=== PATIENT | female | born 1945 | race Caucasian/White ===

== ENCOUNTER 2016-06-29 10:56 | Inpatient (IN) | payer OTHER ==
[~2016-06-29] VITALS: Ht 152.4 cm; Wt 69.6 kg
--- NOTE | ~2016-06-29 | P ---
[facility] [place] [address] PROCEDURE REPORT Name: ALVIN BLEVINS Room #: 450-P ADM IN M.R.#: [id number] Admission: 06/29/16 Attend Phys: Madhuri Flaherty MD Discharge: Date of : 45 Report #: [id number] THIS REPORT FOR: //name// CC: Nimo Flaherty BRIEF HISTORY: The patient is a 71-year-old woman who has had melanotic stools. She has also had diarrhea, but was found to be positive for Clostridium difficile. PREOPERATIVE DIAGNOSIS: Melanotic stool. POSTOPERATIVE DIAGNOSES: 1. Moderate hiatus hernia with few scattered erosions. 2. Gastritis without active bleeding, but slight friability. MEDICATIONS: Deep sedation with propofol per anesthesia. SPECIMEN: Biopsies, gastric mucosa, rule out H. pylori. ESTIMATED BLOOD LOSS: 3 mL. PROCEDURE: EGD with biopsy. FINDINGS: Prior to propofol sedation, procedure of upper endoscopy discussed with the patient as well as potential risks, benefits, and complications. She indicates she understands and desires to proceed. With the patient in left lateral decubitus position, the [employer] video endoscope was inserted in the cervical esophagus under direct vision without difficulty. Examination of this organ through its entire length revealed normal esophageal mucosa down the squamocolumnar junction. Squamocolumnar junction was inspected and noted to be unremarkable, no evidence of ulcers, erosions or rectal bleeding. Scope was advanced, bambi was about 3 cm sliding type hiatus hernia. The mucosa in the hernia was intact; however, there was some slight friability and some minor scope trauma with passing the scope through this area; however, significant or active bleeding is not seen. A few erosions were seen on the distal aspect of the diaphragmatic hiatus, but again an ulcer was not seen. The scope was advanced fully into the stomach, was examined on end view as well as retroflexed views. There was a pattern of a diffuse gastritis with erythema, but no ulcers or erosions were seen. Upon retroflexion, the hiatus hernia was seen, but no mass lesions were seen. No bleeding lesions were seen. There were no clots in the stomach. The pylorus, duodenal bulb, and postbulbar sweep down to the fourth portion revealed normal mucosa. At that point, the scope was slowly withdrawn and careful circumferential views confirmed the above findings. The patient tolerated the procedure well. Biopsies obtained of the gastritis. [address] [address] PROCEDURE REPORT Name: ALVIN BLEVINS Room #: 450-P [facility] IN [facility]#: [id number] Admission: 06/29/16 Attend Phys: Madhuri Flaherty MD Discharge: Date of : 45 Report #: [id number] DISPOSITION: The patient with GI bleeding. No obvious upper GI source. She does have positive stools for C. diff and currently on metronidazole. She has significant pulmonary disease. We will see how she does. We would consider colonoscopy. It is possible the bleeding may be related simply to the C. diff, I do not think a neoplastic lesion needs to be considered and excluded. until the C. diff that has resolved. However, bleeding continued to be an issue, urgent colonoscopy could be undertaken. <ELECTRONICALLY SIGNED> By: Jarod Roth MD 07/09/16 1104 1256 2236 Jarod Roth MD /nt
--- NOTE | ~2016-06-29 | EKG ---
[address] [address] ELECTROCARDIOGRAM REPORT Name: ALVIN BLEVINS Room #: 303-P ADM IN M.R.#: [id number] Admission: 06/29/16 Attend Phys: Madhuri Flaherty MD Discharge: Date of : 45 Report #: [id number] THIS REPORT FOR: //name// [facility] ED Test Date: 2016-06-29 Test Time: 11:01:29 Pat Name: ALVIN BLEVINS Department: Room: [facility] Gender: F Rip Tailer: CECI : 1945 Requested By: Cameron Flores Order Number: [id number] MD: Baron Rowell Measurements Intervals [place] Rate: 101 P: 45 HI: 143 QRS: 44 QRSD: 87 T: 98 QT: 363 QTc: 471 Interpretive Statements Sinus tachycardia Ventricular premature complex Aberrant complex Left atrial enlargement LVH with secondary repolarization abnormality No previous ECG available for comparison Electronically Signed On 06-30-2016 11:09:07 ELEMENTARY READING TUTOR by Baron Rowell [email or web address] <ELECTRONICALLY SIGNED> By: Baron Rowell MD 06/30/16 1109 110 00 Baron Rowell MD /SHARAN
--- NOTE | ~2016-06-29 | 2DMMODE ---
[facility] [place] [place] [address] 2 D/M-MODE ECHOCARDIOGRAM Name: ALVIN BLEVINS Room #: 247-P [facility] IN ..#: [id number] Admission: 06/29/16 Attend Phys: Madhuri Flaherty MD Discharge: Date of : 45 Date of Service: 07/05/16 1442 Report #: [id number] THIS REPORT FOR: //name// Transthoracic Echocardiography Ordering physician: Eleuterio Morales Referring physician: Nimo Noland Manoj K. Water Taxi Captain: ERICKA Amaya Indications/History: CHF. BP: 130 / HR: 90bpm Height: 60in Weight: 152.7lb 63 Study data: M-mode, complete 2D, complete spectral Doppler, and color Doppler. Location: Bedside. Routine. Image quality was good. 2D measurements Normal Normal LVID ED 35.2mm 36-57 IVS ED 15.7mm 6-11 LVID ES 21.3mm 23-40 LVPW ED 17.7mm 6-11 LA volume 84ml/m2 16-28 AoRoot diam 32.7mm 21-37 index ED LVOT diameter 21mm 18-23 Findings: Left ventricle: The cavity size was normal. Wall thickness was increased in a pattern of severe LVH. Systolic function was hyperdynamic. The estimated ejection fraction was in the range of 65% to 70%. Wall motion was normal. Right ventricle: The cavity size was normal. Systolic function was normal. Right atrium: The atrium was dilated. Left atrium: The atrium was dilated. Volume index: 84ml/m2 (S). Aortic valve: Trileaflet; mildly thickened, mildly calcified leaflets. Doppler: There was no stenosis. Mild to moderate regurgitation. Peak velocity: 159.2cm/s (S). Peak gradient: 10.1mm Hg (S). [address] [address] 2 D/M-MODE ECHOCARDIOGRAM Name: ALVIN BLEVINS Room #: 247-P [facility] IN [place]#: [id number] Admission: 06/29/16 Attend Phys: Madhuri Flaherty MD Discharge: Date of : 45 Date of Service: 07/05/16 1442 Report #: [id number] Mitral valve: Mildly calcified annulus. Doppler: The findings are consistent with mild to moderate stenosis. Mild regurgitation. Peak E-wave velocity: 140.9cm/s. Mean gradient: 11.3mm Hg (D). Peak gradient: 7.9mm Hg (D). Peak A-wave velocity: 243.3cm/s. Tricuspid valve: Structurally normal valve. Doppler: There was no evidence for stenosis. Mild regurgitation. Regurgitant peak velocity: 288.1cm/s. Peak RV-RA gradient: 33mm Hg (S). Pulmonic valve: Structurally normal valve. Doppler: There was no evidence for stenosis. Trivial regurgitation. Pericardium: There was no pericardial effusion. Aorta: Aortic root: The aortic root was normal in size. Pulmonary artery: Systolic pressure was estimated to be 43mm Hg. Diastolic function: Doppler parameters are consistent with abnormal left ventricular relaxation (grade 1 diastolic dysfunction). Systemic veins: Inferior vena cava: The vessel was dilated; the respirophasic diameter changes were in the normal range (= 50%). Conclusions 1. Left ventricle: The cavity size was normal. Wall thickness was increased in a pattern of severe LVH. Systolic function was hyperdynamic. The estimated ejection fraction was in the range of 65% to 70%. 2. Right atrium: The atrium was dilated. 3. Left atrium: The atrium was dilated. 4. Aortic valve: Trileaflet; mildly thickened, mildly calcified leaflets. Mild to moderate regurgitation. 5. Mitral valve: Mildly calcified annulus. The findings are consistent with mild to moderate stenosis. Mild regurgitation. Mean gradient: 11.3mm Hg (D). 6. Pulmonic valve: Trivial regurgitation. 7. Tricuspid valve: Structurally normal valve. Mild regurgitation. [facility] [address] [place] [address] 2 D/M-MODE ECHOCARDIOGRAM Name: ALIVN BLEVINS Room #: 247-P [facility] IN ..#: [id number] Admission: 06/29/16 Attend Phys: Madhuri Flaherty MD Discharge: Date of : 45 Date of Service: 07/05/16 1442 Report #: [id number] 8. Pulmonary arteries: Systolic pressure was estimated to be 43mm Hg. <ELECTRONICALLY SIGNED> By: Pratik Webster MD 07/05/16 1607 1442 06 Pratik Webster MD /roshan
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
--- NOTE | ~2016-06-29 | S ---
[facility] [place] [address] SURGICAL PATH RPT PROCEDURE Name: ALVIN KHAN Room #: 247-P ADM IN M.R.#: [id number] Admission: 06/29/16 Date of : 45 Discharge: Report #: [id number] Path Case #: [id number] PATHOLOGY REPORT COLLECTION DATE: 06/30/2016 RECEIVED DATE: 06/30/2016 SUBMITTING PHYS: Dr. Jarod Roth OTHER PHYS: Dr. Madhuri Noland SPECIMEN(S) RECEIVED: A.Bx of gastritis * * * * * * * * * * * * FINAL DIAGNOSIS: Gastric mucosa "biopsy of gastritis": - Mild chronic reactive gastropathy with mild chronic inflammation. - The immunoperoxidase stain for Helicobacter is negative. (SHA:all; d/t: 07/04/2016) PATHOLOGIST: Mario Sanchez M.D. REPORT ELECTRONICALLY SIGNED BY: Mario Sanchez M.D. DATE/TIME: 07/05/2016 09:03 * * * * * * * * * * * * GROSS PATHOLOGY: Received in formalin labeled "Yael Khan, biopsy of gastritis," are five segments of hollis soft tissue measuring 1.0 x 0.7 x 0.1 cm in aggregate dimensions and ranging from 0.3 to 0.7 cm in maximum dimension. The specimen is submitted entirely in cassette A1. (CAA; 06/30/2016) CLINICAL HISTORY: Diarrhea, C. difficile INITIAL CPT CODE(S): A; 84255, 24859 Professional services performed by [facility] at [facility] [address] [place] [address] Technical services performed by [facility] at [address] [place] [address]. [facility] [address] [place] [address] SURGICAL PATH RPT PROCEDURE Name: ALVIN KHAN Room #: 247-P ADM IN M.R.#: [id number] Admission: 06/29/16 Date of : 45 Discharge: Report #: [id number] Path Case #: [id number] [address] PHONE: [phone] DIRECTOR: Brad Martinez M.D. * * * END OF REPORT * * *
[~2016-06-29 10:56] MED LIST: ADVAIR HFA 1112 UNIT INH; ALDACTONE25 MG PO; ANTIVERT25 MG; COREG3.125 MG PO; CYMBALTA60 MG PO; DIFLUCAN200 MG PO; DUONEB 2.5-0.5 M3 ML INH; FOLIC ACID1 MG PO; HYDROCHLOROTH12.5 M1 PO; HYDROCODON-ACE1 EAC5 PO; IRON325 PO; KLOR-CON 1010 MEQ PO; LASIX 20 MG TAB20 MG PO; LEVAQUIN 500 M500 M2 PO; LEVAQUIN 500 M500 M4 PO; LEVOTHYROXIN0.125 M1 PO; LEVOTHYROXINE 0.1 MG PO; LOPERAMIDE2 MG PO; METHOTREXATE 22.5 MG PO; MIRALAX17 GM; NEFAZODONE HCL100 MG PO; NEURONTIN600 MG PO; NICODERM CQ1 EAC1 TD; NICOTINE TRANSD21 M1; NORCO 10-325 T1 EACH PO; NORVASC10 MG PO; NORVASC2.5 MG PO; OMEPRAZOLE 20 M20 M1 PO; ONDANSETRON HCL4 M2 PO; POTASSIUM20 PO; PREDNISONE 10 M10 MG PO; PROAIR HFA8.5 GM; PROAIR HFA8.5 GM PO; ROBITUSSIN DM118 ML PO; ROBITUSSIN100 MG/53 PO; SENOKOT-S1 TA1; SYMBICORT160 MCG/4.; SYMBICORT160 MCG/4. PO; TYLENOL325 MG PO; VISTARIL50 MG PO; VITAMIN D 5050000 I1 PO; VOLTAREN GEL 1100 G2; VOLTAREN GEL 1100 G2 TOP; XANAX 0.25 MG0.25 MG PO; XANAX 0.5 MG0.5 MG PO; prostat PO
[2016-06-29 10:58] VITALS: BP 148/63
[2016-06-29] MEDS ORDERED: COREG6.25 MG PO (11:14)
[2016-06-29] MEDS ORDERED: LEVOTHYROXIN0.075 MG PO (11:15)
[2016-06-29] MEDS ORDERED: PREDNISONE 5 MG5 MG PO (11:17)
[2016-06-29] MEDS ORDERED: ZANTAC 150MG T150 MG PO (11:18)
[2016-06-29] MEDS ORDERED: PRIMIDONE50 MG PO (11:18)
[2016-06-29] MEDS ORDERED: HYDROCORT-PRAMO30 GM TP (11:19)
[2016-06-29] MEDS ORDERED: CORTIZONE-10 PL28 GM TP (11:20)
[2016-06-29] MEDS ORDERED: NYAMYC15 GM TOP (11:20)
[2016-06-29] MEDS ORDERED: PROAIR HFA8.5 GM INH (11:21)
[2016-06-29] MEDS ORDERED: SYMBICORT160 MCG/4. INH (11:21)
[2016-06-29] MEDS ORDERED: SPIRIVA INH (11:21)
[2016-06-29 11:23] LABS: HEMATOCRIT 31.2 % (37.0-47.0); HEMOGLOBIN 10.8 gm/dL (12.0-15.0); MCH 31.7 pg (26.0-34.0); MCHC 34.7 % (28.0-37.0); MCV 91.2 fL (80.0-100.0); PLATELET COUNT 245 thou/uL (150-400); RBC 3.42 mil/uL (4.20-5.00); RDW 14.5 % (10.5-14.5); WBC 15.2 thou/uL (4.0-11.0)
[2016-06-29] MEDS ORDERED: TESSALON PERLE100 MG PO (11:24)
[2016-06-29 11:27] LABS: MANUAL DIFF YES
[2016-06-29 11:33] LABS: URINE BILIRUBIN NEGATIVE (Negative); URINE BLOOD NEGATIVE (Negative); URINE COLOR YELLOW; URINE GLUCOSE-RANDOM* NEGATIVE (Negative); URINE KETONES NEGATIVE (Negative); URINE NITRITE NEGATIVE (Negative); URINE PROTEIN (DIPSTICK) NEGATIVE (Negative); URINE SPECIFIC GRAVITY 1.015 (1.003-1.035); URINE UROBILINOGEN 0.2 E.U./dl (0.2-1.0)
[2016-06-29 11:34] LABS: CALCIUM 7.7 mg/dL (8.5-10.1); CREATININE 0.8 mg/dL (0.6-1.3); INR 1.2; POTASSIUM 3.7 mmol/L (3.5-5.1); PROTIME 12.1 Seconds (9.3-11.4)
[2016-06-29 11:40] LABS: ALBUMIN 2.7 g/dL (3.4-5.0); TOTAL BILIRUBIN 0.3 mg/dL (<0.1-1.0); TOTAL PROTEIN 5.5 g/dL (6.4-8.2)
[2016-06-29] MEDS ORDERED: HYDROCODONE-AP1 EAC6 PO (11:40)
[2016-06-29] MEDS ORDERED: ZOFRAN ODT4 MG DISSOLVE (11:41)
[2016-06-29] MEDS ORDERED: SILTUSSIN DM C118 ML PO (11:41)
[2016-06-29] MEDS ORDERED: HYDROCERIN CREA1 JAR TOP (11:42)
[2016-06-29] MEDS ORDERED: VOLTAREN GEL 1100 GM TOP (11:42)
[2016-06-29] MEDS ORDERED: GLUCAGEN1 MG IM (11:44)
[2016-06-29] MEDS ORDERED: LOPERAMIDE 2 MG2 M1 PO (11:45)
[2016-06-29 11:49] LABS: ABSOLUTE NEUTROPHILS 14.3 thou/uL (1.4-8.2); PLATELET ESTIMATE NORMAL; TOTAL CELL COUNT 100
[2016-06-29 15:25] LABS: TROPONIN-I < 0.04 ng/mL (<0.04-0.07)
[2016-06-29 15:50] VITALS: BP 115/67
[2016-06-29 15:58] VITALS: BP 144/67
[2016-06-29 17:12] LABS: HEMOGLOBIN 10.1 gm/dL (12.0-15.0)
[2016-06-29 17:37] LABS: TROPONIN-I 0.04 ng/mL (<0.04-0.07)
[2016-06-29 19:06] LABS: TSH 4.63 uIU/mL (0.450-4.500)
[2016-06-29 19:23] VITALS: BP 111/66
[2016-06-29 20:00] VITALS: BP 105/32
[2016-06-29 21:10] LABS: % SATURATION 41 % (15-55); IRON 108 ug/dL (27-139); TIBC 261 ug/dL (250-450); UIBC 153 ug/dL (118-369)
[2016-06-30 01:37] LABS: HEMATOCRIT 25.9 % (37.0-47.0); HEMOGLOBIN 8.9 gm/dL (12.0-15.0)
[2016-06-30 03:04] VITALS: BP 151/71
[2016-06-30 07:23] VITALS: BP 126/56
[2016-06-30 08:13] LABS: MANUAL DIFF NO; MCH 32.1 pg (26.0-34.0); MCHC 34.7 % (28.0-37.0); MCV 92.6 fL (80.0-100.0); RBC 2.76 mil/uL (4.20-5.00); RDW 15.3 % (10.5-14.5); WBC 10.7 thou/uL (4.0-11.0)
[2016-06-30 08:14] LABS: BASOPHILS 0.6 % (0.0-2.0); EOSINOPHILS 0.1 % (0.0-3.0); LYMPHOCYTES 9.7 % (24.0-44.0); MONOCYTES 8.5 % (1.0-8.0); PLATELET COUNT 182 thou/uL (150-400); POLYS 81.1 % (36.0-66.0)
[2016-06-30 09:14] LABS: HEMATOCRIT 23.7 % (37.0-47.0); HEMOGLOBIN 8.3 gm/dL (12.0-15.0)
[2016-06-30 10:01] LABS: CALCIUM 7.8 mg/dL (8.5-10.1); CREATININE 0.7 mg/dL (0.6-1.3); POTASSIUM 3.6 mmol/L (3.5-5.1); TROPONIN-I 0.06 ng/mL (<0.04-0.07)
[2016-06-30 15:57] VITALS: BP 104/88
[2016-06-30 17:27] VITALS: BP 124/69
[2016-06-30 20:00] VITALS: BP 117/61
[2016-07-01 04:00] VITALS: BP 141/63
[2016-07-01 06:02] LABS: HEMATOCRIT 22.5 % (37.0-47.0); HEMOGLOBIN 7.7 gm/dL (12.0-15.0); MCH 32.1 pg (26.0-34.0); MCHC 34.4 % (28.0-37.0); MCV 93.2 fL (80.0-100.0); RBC 2.41 mil/uL (4.20-5.00); RDW 15.2 % (10.5-14.5)
[2016-07-01 06:13] LABS: CALCIUM 7.8 mg/dL (8.5-10.1); CREATININE 0.7 mg/dL (0.6-1.3); POTASSIUM 3.8 mmol/L (3.5-5.1)
[2016-07-01 07:35] VITALS: BP 122/58
[2016-07-01 15:15] VITALS: BP 117/59
[2016-07-01 20:00] VITALS: BP 116/56
[2016-07-02 04:00] VITALS: BP 120/56
[2016-07-02 04:07] LABS: BASOPHILS 0.4 % (0.0-2.0); HEMATOCRIT 23.6 % (37.0-47.0); LYMPHOCYTES 11.4 % (24.0-44.0); MCH 32.1 pg (26.0-34.0); MCV 94.5 fL (80.0-100.0); MONOCYTES 5.7 % (1.0-8.0); PLATELET COUNT 163 thou/uL (150-400); POLYS 81.5 % (36.0-66.0); RDW 15.4 % (10.5-14.5); WBC 6.1 thou/uL (4.0-11.0)
[2016-07-02 04:17] LABS: MANUAL DIFF NO
[2016-07-02 05:27] LABS: CALCIUM 7.5 mg/dL (8.5-10.1); CREATININE 0.8 mg/dL (0.6-1.3); POTASSIUM 3.4 mmol/L (3.5-5.1)
[2016-07-02 08:18] VITALS: BP 128/54
[2016-07-02 17:18] VITALS: BP 126/58
[2016-07-02 19:40] VITALS: BP 132/53
[2016-07-03 03:50] VITALS: BP 127/51
[2016-07-03 05:58] LABS: ABSOLUTE NEUTROPHILS 6.6 thou/uL (1.4-8.2); BASOPHILS 1.1 % (0.0-2.0); EOSINOPHILS 1.1 % (0.0-3.0); HEMATOCRIT 23.6 % (37.0-47.0); HEMOGLOBIN 8.2 gm/dL (12.0-15.0); LYMPHOCYTES 10.1 % (24.0-44.0); MCH 32.4 pg (26.0-34.0); MCHC 34.8 % (28.0-37.0); MCV 93.1 fL (80.0-100.0); MONOCYTES 5.3 % (1.0-8.0); PLATELET COUNT 193 thou/uL (150-400); POLYS 82.4 % (36.0-66.0); RBC 2.54 mil/uL (4.20-5.00); RDW 15.2 % (10.5-14.5)
[2016-07-03 06:05] LABS: CALCIUM 7.2 mg/dL (8.5-10.1); CREATININE 0.6 mg/dL (0.6-1.3); POTASSIUM 3.1 mmol/L (3.5-5.1)
[2016-07-03 06:32] LABS: MANUAL DIFF NO
[2016-07-03 10:16] LABS: ABG SAMPLE TYPE ARTERIAL; BE(vivo) -1.4 mmol/L (-2 to +3); HCO3 23.2 mmol/L (22.0-26.0); O2(CT) 9.2 mL/dL (15.0-23.0); PCO2 38.3 mmHg (35.0-45.0); sO2 83.6 % (92.0-98.0); tCO2 24.4 mmol/L (24.0-30.0)
[2016-07-03 10:17] LABS: O2Hb 82.6 % (92.0-98.0); PO2 47.5 mmHg (80.0-100.0); STICK SITE R.BRACHIAL
[2016-07-03 16:45] VITALS: BP 108/53
[2016-07-03 17:25] VITALS: BP 113/54
[2016-07-03 18:31] VITALS: BP 100/38
[2016-07-03 19:24] VITALS: BP 100/49
[2016-07-03 19:30] VITALS: BP 106/62
[2016-07-04] VITALS (10 sets, daily range): BP systolic 105–132; BP diastolic 47–77
[2016-07-04 08:47] LABS: HEMATOCRIT 22.3 % (37.0-47.0); HEMOGLOBIN 7.8 gm/dL (12.0-15.0); MCHC 34.9 % (28.0-37.0); MCV 91.5 fL (80.0-100.0); PLATELET COUNT 202 thou/uL (150-400); RBC 2.44 mil/uL (4.20-5.00); RDW 15.3 % (10.5-14.5); WBC 8.5 thou/uL (4.0-11.0)
[2016-07-04 08:48] LABS: MANUAL DIFF YES
[2016-07-04 08:52] LABS: ABG SAMPLE TYPE ARTERIAL; BE(vivo) -3.1 mmol/L (-2 to +3); HCO3 20.4 mmol/L (22.0-26.0); O2(CT) 11.3 mL/dL (15.0-23.0); O2Hb 93.8 % (92.0-98.0); PCO2 30.8 mmHg (35.0-45.0); PO2 81.1 mmHg (80.0-100.0); STICK SITE R.RADIAL; sO2 96.5 % (92.0-98.0); tCO2 21.4 mmol/L (24.0-30.0)
[2016-07-04 09:38] LABS: ABSOLUTE NEUTROPHILS 7.7 thou/uL (1.4-8.2); METAMYELOCYTES 1 %; MYELOCYTES 1 %; POLYCHROMASIA SLIGHT; TOTAL CELL COUNT 100; TOXIC GRANULATION SLIGHT
[2016-07-04 09:39] LABS: ANISOCYTOSIS SLIGHT; MACROCYTES SLIGHT
[2016-07-04 10:01] LABS: CALCIUM 7.2 mg/dL (8.5-10.1); CREATININE 0.6 mg/dL (0.6-1.3); POTASSIUM 3.9 mmol/L (3.5-5.1)
[2016-07-05] VITALS (9 sets, daily range): BP systolic 111–140; BP diastolic 48–65
[2016-07-05 04:17] LABS: BASOPHILS 0.2 % (0.0-2.0); HEMATOCRIT 21.9 % (37.0-47.0); HEMOGLOBIN 7.6 gm/dL (12.0-15.0); MCH 31.7 pg (26.0-34.0); MCHC 34.6 % (28.0-37.0); MCV 91.7 fL (80.0-100.0); MONOCYTES 4.2 % (1.0-8.0); PLATELET COUNT 239 thou/uL (150-400); POLYS 92.6 % (36.0-66.0); RBC 2.39 mil/uL (4.20-5.00); RDW 15.5 % (10.5-14.5); WBC 11.9 thou/uL (4.0-11.0)
[2016-07-05 04:19] LABS: MANUAL DIFF NO
[2016-07-05 04:20] LABS: CALCIUM 6.9 mg/dL (8.5-10.1); CREATININE 0.8 mg/dL (0.6-1.3); POTASSIUM 3.5 mmol/L (3.5-5.1)
[2016-07-05 05:04] LABS: ABG SAMPLE TYPE ARTERIAL; BE(vivo) 0.9 mmol/L (-2 to +3); HCO3 24.6 mmol/L (22.0-26.0); LACTATE 2.09 mmol/L (0.5-2.0); O2(CT) 10.6 mL/dL (15.0-23.0); O2Hb 90.3 % (92.0-98.0); PCO2 35.4 mmHg (35.0-45.0); PO2 61.1 mmHg (80.0-100.0); sO2 92.8 % (92.0-98.0); tCO2 25.7 mmol/L (24.0-30.0)
[2016-07-05 05:05] LABS: STICK SITE R.RADIAL
[2016-07-06 04:56] VITALS: BP 131/61
[2016-07-06 05:55] LABS: HEMATOCRIT 22.7 % (37.0-47.0); HEMOGLOBIN 7.5 gm/dL (12.0-15.0); MCH 31.7 pg (26.0-34.0); MCHC 33.3 % (28.0-37.0); MCV 95.2 fL (80.0-100.0); RBC 2.38 mil/uL (4.20-5.00); RDW 15.5 % (10.5-14.5); WBC 11.8 thou/uL (4.0-11.0)
[2016-07-06 06:30] LABS: CALCIUM 7.3 mg/dL (8.5-10.1); CREATININE 0.6 mg/dL (0.6-1.3); POTASSIUM 3.8 mmol/L (3.5-5.1)
[2016-07-06 08:29] VITALS: BP 165/81
[2016-07-06 12:41] VITALS: BP 125/76
[2016-07-06 16:00] VITALS: BP 120/53
[2016-07-06 20:10] VITALS: BP 127/50
[2016-07-07 05:08] VITALS: BP 140/78
[2016-07-07 05:29] LABS: HEMATOCRIT 24.4 % (37.0-47.0); HEMOGLOBIN 8.1 gm/dL (12.0-15.0); MCH 31.7 pg (26.0-34.0); MCHC 33.2 % (28.0-37.0); MCV 95.6 fL (80.0-100.0); RBC 2.55 mil/uL (4.20-5.00); RDW 16.1 % (10.5-14.5); WBC 10.1 thou/uL (4.0-11.0)
[2016-07-07 05:41] LABS: CALCIUM 7.7 mg/dL (8.5-10.1); CREATININE 0.8 mg/dL (0.6-1.3); POTASSIUM 3.4 mmol/L (3.5-5.1)
[2016-07-07 07:20] VITALS: BP 138/53
[2016-07-07 11:45] VITALS: BP 153/76
[2016-07-07 16:22] VITALS: BP 144/68
[2016-07-07 20:01] VITALS: BP 150/53
[2016-07-08 02:42] VITALS: BP 143/58
[2016-07-08 08:13] VITALS: BP 186/78
[2016-07-08 15:40] VITALS: BP 142/64
[2016-07-08 19:08] VITALS: BP 139/64
[2016-07-09 03:09] VITALS: BP 145/67
[2016-07-09 09:05] VITALS: BP 153/66
[2016-07-09] MEDS ORDERED: PREDNISONE 20 M20 M1 PO (09:49)
[2016-07-09] MEDS ORDERED: AUGMENTIN 875875 MG PO (09:52)
[2016-07-09 12:31] VITALS: BP 144/58
== END 2016-07-09 15:34 | DRG 871 ==
LOC: ER 10:56 → EROBS 14:35 → 3N 14:35 → ICU 07-03 14:27 → 4W 07-05 16:27
PROVIDERS: Emergency Medicine; Family Medicine; Hospitalist
PROC: 5A09457 Assistance with Respiratory Ventilation, 24-96 Consecutive Hours, Continuous Positive Airway Pressure (ICD-10-PCS; principal; 2016-06-29)
PROC: 0DB68ZX Excision of Stomach, Via Natural or Artificial Opening Endoscopic, Diagnostic (ICD-10-PCS; 2016-06-30)
PROC: 05HB33Z Insertion of Infusion Device into Right Basilic Vein, Percutaneous Approach (ICD-10-PCS; 2016-07-03)
DX: A41.9 Sepsis, unspecified organism (principal); N17.0 Acute kidney failure with tubular necrosis; J96.21 Acute and chronic respiratory failure with hypoxia; J18.9 Pneumonia, unspecified organism; K92.2 Gastrointestinal hemorrhage, unspecified; D62 Acute posthemorrhagic anemia; J44.1 Chronic obstructive pulmonary disease with (acute) exacerbation; E46 Unspecified protein-calorie malnutrition; A04.7 Enterocolitis due to Clostridium difficile; J90 Pleural effusion, not elsewhere classified; K22.10 Ulcer of esophagus without bleeding; Z66 Do not resuscitate; I10 Essential (primary) hypertension; K21.9 Gastro-esophageal reflux disease without esophagitis; F32.9 Major depressive disorder, single episode, unspecified; M79.7 Fibromyalgia; F17.210 Nicotine dependence, cigarettes, uncomplicated; M06.9 Rheumatoid arthritis, unspecified; E03.9 Hypothyroidism, unspecified; J44.9 Chronic obstructive pulmonary disease, unspecified; F03.90 Unspecified dementia, unspecified severity, without behavioral disturbance, psychotic disturbance, mood disturbance, and anxiety; G35 Multiple sclerosis; K44.9 Diaphragmatic hernia without obstruction or gangrene; E87.6 Hypokalemia; E11.65 Type 2 diabetes mellitus with hyperglycemia; Z68.30 Body mass index [BMI] 30.0-30.9, adult; Z99.81 Dependence on supplemental oxygen; Z88.8 Allergy status to other drugs, medicaments and biological substances; Z88.6 Allergy status to analgesic agent; Z90.49 Acquired absence of other specified parts of digestive tract; Z90.710 Acquired absence of both cervix and uterus; Z90.722 Acquired absence of ovaries, bilateral; Z79.899 Other long term (current) drug therapy
CPT/HCPCS: 10047; 10204; 10795; 27000; 62110